=== PATIENT | male | born 1980 | race Caucasian/White ===

== ENCOUNTER 2018-04-10 14:25 | Emergency (ER) | payer OTHER ==
[2018-04-10 14:35] VITALS: RESP 18; TEMP 98.2
[2018-04-10] MEDS ORDERED: ACETAMINOPHEN TAB 325 MG TAB PO STA (14:47)
[2018-04-10] MEDS ORDERED: DIPH,PERTUS(ACELL)TETVAC-LF 0.5 ML VIAL IM ONE (14:47)
[2018-04-10] MEDS ORDERED: ACET/COD 300 MG/30 MG STARTER PACK 6 TAB BTL PO STA (14:57)
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
[2018-04-10 15:59] VITALS: BP 129/89; PULSE 80
== END 2018-04-10 15:57 | disposition home or self-care (01) ==
LOC: EC 14:25
DX: S61.212A Laceration without foreign body of right middle finger without damage to nail, initial encounter (principal); S00.03XA Contusion of scalp, initial encounter; Z23 Encounter for immunization; Y04.0XXA Assault by unarmed brawl or fight, initial encounter; Y92.149 Unspecified place in prison as the place of occurrence of the external cause; Y99.0 Civilian activity done for income or pay
CPT/HCPCS: 70450; 71046; 72125; 90471; 90715; 99285